=== PATIENT | female | born 1975 | race African-American/Black ===

== ENCOUNTER 2020-07-28 16:34 | Emergency (ER) | payer OTHER ==
[~2020-07-28] VITALS: Ht 162.6 cm; Wt 77.1 kg
[~2020-07-28 16:34] MED LIST: AMIT25TA22 PO; GABA300C2 PO; METF500T PO; OMEP40CA PO
[2020-07-28 16:45] VITALS: BP 137/83; TEMP 98
[2020-07-28 17:36] LABS: PLATELET COUNT 320 K/uL (152-353)
[2020-07-28 17:55] LABS: POTASSIUM 3.5 mmol/L (3.6-5.2)
== END 2020-07-28 18:50 | disposition home or self-care (01) ==
LOC: ED 16:34
PROVIDERS: Hospitalist
DX: L03.116 Cellulitis of left lower limb (principal)
CPT/HCPCS: 36415; 80048; 85027; 87040; 96365; 96375; 99284; J1885; J2405; J3370